=== PATIENT | male | born 1980 | race Caucasian/White ===

== ENCOUNTER 2023-05-02 00:25 | Emergency (ER) | payer OTHER ==
[~2023-05-02] VITALS: Ht 170.2 cm; Wt 77.1 kg
[2023-05-02 00:36] VITALS: BP 136/79; TEMP 98
[2023-05-02] MEDS ORDERED: TDAP [DIPH/PERTUSSIS/TET] 0.5 ML VIAL IM ONE ×2 (01:00→01:11)
[2023-05-02] MEDS ORDERED: AMOX-430 PO (01:30)
[2023-05-02 01:55] VITALS: O2SAT 98
== END 2023-05-02 01:56 ==
LOC: ER 00:28
DX: S31.153A Open bite of abdominal wall, right lower quadrant without penetration into peritoneal cavity, initial encounter (principal); W50.3XXA Accidental bite by another person, initial encounter; Y93.89 Activity, other specified; Y92.89 Other specified places as the place of occurrence of the external cause; Y99.8 Other external cause status
CPT/HCPCS: 76870-TC; 90715